=== PATIENT | female | born 1980 | race Caucasian/White ===

== ENCOUNTER 2018-10-22 16:58 | Outpatient (CLI) | payer BC ==
--- NOTE | 2018-10-22 17:44 | RAD ---
4 views cervical spine. HISTORY: Neck pain for several years. AP, lateral, open-mouth odontoid and swimmer's views cervical spine obtained. Images demonstrate disc space height loss with anterior and posterior osteophytes at C5-6. This is co mpatible with changes of spondylosis. No evidence of acute cervical spine check fractures or bony lesion seen. IMPRESSION: C5-6 spondylosis.
== END 2018-10-22 16:59 | disposition home or self-care (01) ==
LOC: SCSRAD 16:58
PROVIDERS: ATTEND Family Medicine
DX: M54.2 Cervicalgia (principal); M47.812 Spondylosis without myelopathy or radiculopathy, cervical region
CPT/HCPCS: 72040

== ENCOUNTER 2019-02-11 07:43 | Outpatient (CLI) | payer BC ==
--- NOTE | 2019-02-11 11:10 | MRI ---
MRI CERVICAL SPINE WITHOUT CONTRAST: 02/11/2019 HISTORY: Bilateral hand numbness. COMPARISON: None. TECHNIQUE: Multiplanar, multisequence MR imaging of the cervical spine obtained without contrast. FINDINGS: The sagittal STIR imaging demonstrates no focal area of osseous marrow edema. No significant anterolisthesis or retrolisthesis is evident within the cervical spine. No prevertebral soft tissue abnormality is seen. C2-C3: No central canal or neural foraminal stenosis. C3-C4: No central canal or neural foraminal stenosis. C4-C5: No central canal or neural foraminal stenosis. C5-C6: There is disk space narrowing, disk desiccation and disk bulge partially effacing the ventral thecal sac and causing a mild degree of central canal stenosis. Secondary to disk bulge there is mi ld associated right neural foraminal stenosis. No significant left neural foraminal stenosis. C6-C7: No significant central canal or neural foraminal stenosis. C7-T1: No significant central canal or neural foraminal stenosis. No focal area of abnormal signal intensity is identified within the cervical cord. IMPRESSION: Cervical spine degenerative change, as detailed above, most significant at the C5-C6 level. POS: [facility]
== END 2019-02-11 07:44 | disposition home or self-care (01) ==
LOC: TBSIIMAG 07:43 → MRI 07:44
PROVIDERS: ATTEND Family Medicine
DX: M47.22 Other spondylosis with radiculopathy, cervical region (principal)
CPT/HCPCS: 72141